=== PATIENT | female | born 1970 | race Caucasian/White ===

== ENCOUNTER 2016-12-22 19:01 | Emergency (ER) | payer OTHER ==
[~2016-12-22] VITALS: Ht 157.5 cm; Wt 46.4 kg
[~2016-12-22 19:01] MED LIST: ESTR1 PO; TYLE3 PO
[2016-12-22 19:44] VITALS: BP 137/83; PULSE 80; RESP 18; TEMP 98.4; O2SAT 97
[2016-12-22] MEDS ORDERED: TRAM50TA PO (20:36)
[2016-12-22] MEDS ORDERED: ESTR2TAB PO (20:36)
[2016-12-22] MEDS ORDERED: CHLO7.5 PO (20:36)
[2016-12-22] MEDS ORDERED: BACL10TA PO (20:36)
--- NOTE | 2016-12-22 21:36 | PD ---
HPI Chief Complaint: Oral / Dental Pain or Problem Time Seen by Provider: 21:00 Travel History International Travel<30 days: No Contact w/Intl Traveler<30days: No Traveled to known affect area: No History of Present Illness HPI 46 old female presents to the emergency department for evaluation of right jaw pain since 2 PM. Patient reports while eating she developed severe pain in the right jaw at the site of TMJ and she is unable to fully open the mouth. She reports she has a previous history of mandible dislocation requiring reduction in the emergency department in [place]. Pain severity 7 out of 10. No alleviating factors. PFSH Past Medical History Arthritis: No Autoimmune Disease: No Blood Disorders: No Anxiety: Yes Depression: Yes Cancer: No Cardiovascular Problems: No Chemotherapy: No Diabetes: No Diminished Hearing: No Endocrine: No Gastrointestinal Disorders: Yes (CROHN'S DISEASE) Glaucoma: No Genitourinary: No Immune Disorder: No Musculoskeletal: No Neurologic: Yes Psychiatric: Yes (PTSD) Reproductive: Yes (ENDOMETRIOSIS) Respiratory: No Migraines: Yes Radiation Therapy: No Thyroid Disease: No Tetanus Vaccination: < 5 Years Influenza Vaccination: Yes ?: Unknown Tubal Ligation: Yes Past Surgical History AICD: No Arteriovenous Shunt: No Cholecystectomy: Yes Gynecologic Surgery: Yes (HYSTERECTOMY) Hysterectomy: Yes Insulin Pump: No Joint Replacement: No Oral Surgery: Yes (ROOT CANAL) Pacemaker: No Other Surgery: Yes (Breast augmentation) Social History Alcohol Use: Yes (OCCASIONAL) Tobacco Use: No Substance Use: No Allergies-Medications (Allergen,Severity, Reaction): Coded Allergies: promethazine (Unverified Adverse Reaction, Severe, Joint Pain, 12/22/16) hydromorphone (Unverified Adverse Reaction, Intermediate, Nausea/Vomiting , 12/22/16) HIP PAIN Reported Meds & Prescriptions Reported Meds & Active Scripts Active Reported Tranxene T (Clorazepate Dipotassium) 7.5 Mg Tab 7.5 Mg PO BID PRN Baclofen 10 Mg Tab 10 Mg PO BID Tramadol (Tramadol HCl) 50 Mg Tab 50 Mg PO Q6H PRN Estradiol 2 Mg Tab 2 Mg PO DAILY Review of Systems Except as stated in HPI: all other systems reviewed are Neg General / Constitutional: No: Fever Eyes: No: Visual changes HENT: No: Headaches Cardiovascular: No: Chest Pain or Discomfort Respiratory: No: Shortness of Breath Gastrointestinal: No: Abdominal Pain Genitourinary: No: Dysuria Physical Exam Narrative GENERAL: Well-nourished, well-developed patient. SKIN: Focused skin assessment warm/dry. HEAD: Normocephalic. EYES: No scleral icterus. No injection or drainage. Mouth: TTP to the right TMJ joint. No malocclusion. Trismus present. NECK: Supple, trachea midline. No JVD or lymphadenopathy. CARDIOVASCULAR: Regular rate and rhythm without murmurs, gallops, or rubs. RESPIRATORY: Breath sounds equal bilaterally. No accessory muscle use. GASTROINTESTINAL: Abdomen soft, non-tender, nondistended. Data Data Last Documented VS Vital Signs Date Time Temp Pulse Resp B/P Pulse Ox O2 Delivery O2 Flow Rate FiO2 12/22/16 19:44 98.4 80 18 137/83 97 Orders Mandible, Complete (Min 4vws) (12/22/16 ) [facility] Medical Decision Making Medical Screen Exam Complete: Yes Emergency Medical Condition: Yes Differential Diagnosis Mandible dislocation, TMJ syndrome Narrative Course 46-year-old female presents emergency department for evaluation of right jaw pain at the site of the TMJ and trismus after eating lunch at 2 PM. On exam patient is reporting severe right-sided jaw pain. There is no malocclusion. Patient is able to fully clinched teeth but is unable to fully open the mouth. X-ray of the mandible: No dislocation or fracture. X-ray findings discussed with patient. Reexamination of her jaw all reveal improved range of motion. Patient will be given a shot of Toradol and Norflex. She will be instructed to continue high-dose NSAIDs and follow up with ENT. Patient verbalizes understanding and agrees to plan Diagnosis Primary Impression: TMJ pain dysfunction syndrome Referrals: Ear / Nose / Throat Specialist Departure Forms: Tests/Procedures, Work Release Enter return to work date: Dec 24, 2016 Additional Instructions: Take [id number] Motrin [id number] milligrams by mouth every 6-8 hours as needed for pain. Make an appointment for follow-up with ENT. Return to emergency department if he developed new or worsening symptoms. Disposition: 01 DISCHARGE HOME Condition: Stable Mally Colby Dec 22, 2016 21:36
--- NOTE | 2016-12-22 23:02 | RADRPT ---
EXAM DATE/TIME: 12/22/2016 22:29 [place] COMPARISON: No previous studies available for comparison. INDICATIONS : Right side jaw pain. Patient states her jaw is locked. MEDICAL HISTORY : Venous insufficiency. Lock jaw. SURGICAL HISTORY : None. ENCOUNTER: Initial ACUITY: 1 day PAIN SCORE: 10/10 LOCATION: Right mandible. FINDINGS: Frontal, lateral, and oblique views of the mandible were performed. No fracture is seen. The condyl ar heads and necks appear normal. No dislocation is identified. Bony mineralization is normal. CONCLUSION: No fracture or subluxation seen of the mandible. Alfredo Carlson MD on December 22, 2016 at 22:58 Board Certified Radiologist. This report was verified electronically.
[2016-12-22] MEDS ORDERED: KETOROLAC TROMETHAMINE 60 MG/2 ML (IM) VIAL IM ONE (23:15)
[2016-12-22] MEDS ORDERED: ORPHENADRINE INJ 60 MG/2 ML AMP IM ONE (23:15)
[2016-12-22 23:35] VITALS: BP 119/62
== END 2016-12-22 23:38 | disposition home or self-care (01) ==
LOC: PHED 19:01 → PHEFT 23:38
DX: M26.621 Arthralgia of right temporomandibular joint (principal); K50.90 Crohn's disease, unspecified, without complications; F43.10 Post-traumatic stress disorder, unspecified
CPT/HCPCS: 70110; 96372; 99284; J1885; J2360